=== PATIENT | male | born 1995 | race Caucasian/White ===

== ENCOUNTER 2021-07-11 10:05 | Outpatient (CLI) | payer OTHER, SELFPAY ==
[2021-07-11 18:54] LABS: Hematocrit 48.6 % (42.0-52.0); Hemoglobin 15.9 g/dL (14.0-18.0); Mean Corpuscular HGB Conc 32.7 g/dl (32-36); Mean Corpuscular Hemoglobin 29.9 pg (26-34); Mean Corpuscular Volume 91.4 fl (80-100); Mean Platelet Volume 11.3 fl (7.4-10.4); Platelet Count Result 299 k/mm3 (150-375); Red Blood Count 5.32 M/mm3 (4.6-6.20); Red Cell Distribution Width 13.1 % (11.5-14.5); White Blood Count 7.3 K/mm3 (4.5-10.0)
[2021-07-11 20:18] LABS: Alanine Aminotransferase 33 U/L (4-50); Albumin Level 4.8 g/dL (3.5-5.1); Alkaline Phosphatase 79 U/L (38-126); Anion Gap 9 mmol/L (8-16); Aspartate Amino Transferase 30 U/L (17-59); Bilirubin,Total 0.7 mg/dL (0.2-1.3); Blood Urea Nitrogen 10 mg/dL (9-20); Calcium 9.5 mg/dL (8.4-10.2); Carbon Dioxide 29 mmol/L (22-30); Chloride 101 mmol/L (98-107); Cholesterol 168 mg/dL (0-200); Estimated Glomerular Filt Rate > 60; Glucose 96 mg/dL (65-110); HDL Direct 73 mg/dL; Potassium 4.7 mmol/L (3.4-5.0); Sodium 139 mmol/L (137-145); Triglycerides 60 mg/dL (<150)
[2021-07-11 20:29] LABS: LDL Cholesterol Direct 78 mg/dL
== END 2021-07-11 10:06 | disposition home or self-care (01) ==
LOC: ANHBWCLAB 10:06
PROVIDERS: PCP Family Medicine; Visit Provider Family Medicine
DX: Z00.00 Encounter for general adult medical examination without abnormal findings (principal)
CPT/HCPCS: 36415; 80053; 80061; 85027

== ENCOUNTER 2021-08-31 15:09 | Outpatient (CLI) | payer OTHER, SELFPAY ==
--- NOTE | ~2021-08-31 | US_ITS ---
EXAMINATION: US scrotum doppler DATE: 08/31/2021 16:17 INDICATION: Left testicular lump. TECHNIQUE: Grayscale and Doppler ultrasound images of the testes were obtained. COMPARISON: None. FINDINGS: The right testis measures 4.3 x 3.2 x 2.0 cm. The left testis measures 3.8 x 2.8 x 1.8 cm. There is normal vascular flow to both testes. The right epididymis demonstrates a 5 mm cyst. The left epididymis demonstrates a 4 mm cyst. There is a 1.1 x 0.7 x 0.8 cm hypoechoic mass in the left epidi dymis. There is no varicocele. There is a left-sided hydrocele. IMPRESSION: 1. 1.1 cm mass in left epididymis, most likely a spermatocele. The differential diagnosis also inclu isaiah adenomatoid tumor and fibrous pseudotumor. Reviewed, dictated and finalized at location A. IMPRESSION: 1. 1.1 cm mass in left epididymis, most likely a spermatocele. The differentia l diagnosis also includes adenomatoid tumor and fibrous pseudotumor.
== END 2021-08-31 15:10 | disposition home or self-care (01) ==
PROVIDERS: PCP Family Medicine; Visit Provider Family Medicine
DX: N50.89 Other specified disorders of the male genital organs (principal)
CPT/HCPCS: 76870; 93976

== ENCOUNTER 2022-07-17 07:54 | Outpatient (CLI) | payer OTHER, SELFPAY ==
[2022-07-17 19:43] LABS: Alanine Aminotransferase 62 U/L (6-50); Albumin Level 4.8 g/dL (3.5-5.1); Alkaline Phosphatase 93 U/L (38-126); Anion Gap 7 mmol/L (8-16); Aspartate Amino Transferase 103 U/L (17-59); Bilirubin,Total 0.8 mg/dL (0.2-1.3); Blood Urea Nitrogen 12 mg/dL (9-20); Calcium 9.4 mg/dL (8.4-10.2); Carbon Dioxide 32 mmol/L (22-30); Chloride 102 mmol/L (98-107); Cholesterol 183 mg/dL (0-200); Estimated Glomerular Filt Rate > 60; Glucose 89 mg/dL (65-110); HDL Direct 73 mg/dL; Potassium 4.1 mmol/L (3.4-5.0); Sodium 141 mmol/L (137-145); Triglycerides 80 mg/dL (<150)
[2022-07-17 19:54] LABS: LDL Cholesterol Direct 69 mg/dL
[2022-07-17 19:57] LABS: Hematocrit 46.4 % (42.0-52.0); Hemoglobin 15.4 g/dL (14.0-18.0); Mean Corpuscular HGB Conc 33.2 g/dl (32-36); Mean Corpuscular Hemoglobin 29.1 pg (26-34); Mean Corpuscular Volume 87.7 fl (80-100); Mean Platelet Volume 11.1 fl (7.4-10.4); Platelet Count Result 271 k/mm3 (150-375); Red Blood Count 5.29 M/mm3 (4.6-6.20); Red Cell Distribution Width 12.8 % (11.5-14.5); White Blood Count 6.4 K/mm3 (4.5-10.0)
== END 2022-07-17 07:55 | disposition home or self-care (01) ==
LOC: ANHBWCLAB 07:56
PROVIDERS: PCP Family Medicine; Visit Provider Family Medicine
DX: Z00.00 Encounter for general adult medical examination without abnormal findings (principal); J98.01 Acute bronchospasm; N50.89 Other specified disorders of the male genital organs; N50.3 Cyst of epididymis; E10.11 Type 1 diabetes mellitus with ketoacidosis with coma
CPT/HCPCS: 36415; 80053; 80061; 85027

== ENCOUNTER 2022-08-15 10:58 | Outpatient (CLI) | payer OTHER, SELFPAY ==
[2022-08-15 19:44] LABS: Alanine Aminotransferase 46 U/L (6-50); Albumin Level 4.7 g/dL (3.5-5.1); Alkaline Phosphatase 69 U/L (38-126); Aspartate Amino Transferase 69 U/L (17-59); Bilirubin,Total 0.6 mg/dL (0.2-1.3)
[2022-08-15 20:47] LABS: Hepatitis B Surface Antigen Negative (Negative)
[2022-08-15 20:53] LABS: HAV RESULT Negative (Negative); Hepatitis B Core IgM Result Negative (Negative)
[2022-08-15 21:04] LABS: Hepatitis C Virus Antibody Negative (Negative)
== END 2022-08-15 10:59 | disposition home or self-care (01) ==
LOC: ANHBWCLAB 11:00
PROVIDERS: PCP Family Medicine; Visit Provider Family Medicine
DX: R74.8 Abnormal levels of other serum enzymes (principal)
CPT/HCPCS: 36415; 80074; 80076

== ENCOUNTER 2022-10-24 11:51 | Outpatient (CLI) | payer OTHER, SELFPAY ==
[2022-10-24 19:58] LABS: Alanine Aminotransferase 49 U/L (6-50); Albumin Level 4.6 g/dL (3.5-5.1); Alkaline Phosphatase 67 U/L (38-126); Aspartate Amino Transferase 87 U/L (17-59); Bilirubin,Total 0.7 mg/dL (0.2-1.3)
== END 2022-10-24 11:52 | disposition home or self-care (01) ==
LOC: ANHBWCLAB 11:52
PROVIDERS: PCP Family Medicine; Visit Provider Family Medicine
DX: R74.8 Abnormal levels of other serum enzymes (principal)
CPT/HCPCS: 36415; 80076

== ENCOUNTER → 2022-10-30 09:07 | Outpatient (CLI) | payer OTHER, SELFPAY ==
--- NOTE | ~2022-10-30 | US_ITS ---
Limited Abdominal Sonogram: Real-time sonographic imaging of the right upper quadrant was performed. Clinical History: Abnormal serum enzymes Findings: The liver appears normal with no evidence of mass lesion or bile duct dilatation. Main por cee vein demonstrates normal direction of flow. The gallbladder is well distended, and appears normal with no evidence of gallstone or wall thickening. The common bile duct measures 5 mm. The visualize d pancreas, aorta, and IVC are unremarkable. Impression: No significant abnormality seen. Reviewed, dictated and finalized at location . Impression: No significant abnormality seen.
== END ==
PROVIDERS: PCP Family Medicine; Visit Provider Family Medicine
DX: R74.8 Abnormal levels of other serum enzymes (principal)
CPT/HCPCS: 76705

== ENCOUNTER 2023-07-30 09:43 | Outpatient (CLI) | payer OTHER, SELFPAY ==
[2023-07-30 19:00] LABS: Hematocrit 46.8 % (42.0-52.0); Hemoglobin 15.2 g/dL (14.0-18.0); Mean Corpuscular HGB Conc 32.5 g/dl (32-36); Mean Corpuscular Hemoglobin 29.1 pg (26-34); Mean Corpuscular Volume 89.5 fl (80-100); Mean Platelet Volume 11.6 fl (7.4-10.4); Platelet Count Result 291 k/mm3 (150-375); Red Blood Count 5.23 M/mm3 (4.6-6.20); Red Cell Distribution Width 12.8 % (11.5-14.5); White Blood Count 5.7 K/mm3 (4.5-10.0)
[2023-07-30 21:26] LABS: Alanine Aminotransferase 52 U/L (6-50); Albumin Level 4.7 g/dL (3.5-5.1); Alkaline Phosphatase 68 U/L (38-126); Anion Gap 4 mmol/L (4-12); Aspartate Amino Transferase 63 U/L (17-59); Bilirubin,Total 0.8 mg/dL (0.2-1.3); Blood Urea Nitrogen 14 mg/dL (9-20); Calcium 9.9 mg/dL (8.4-10.2); Carbon Dioxide 30 mmol/L (22-30); Chloride 103 mmol/L (98-107); Cholesterol 184 mg/dL (0-200); Estimated Glomerular Filt Rate > 60; Glucose 89 mg/dL (65-110); HDL Direct 75 mg/dL; Potassium 4.5 mmol/L (3.4-5.0); Sodium 137 mmol/L (137-145); Triglycerides 60 mg/dL (<150)
[2023-07-30 21:37] LABS: LDL Cholesterol Direct 91 mg/dL
== END 2023-07-30 09:44 | disposition home or self-care (01) ==
PROVIDERS: PCP Nurse Practitioner Adult Health; Visit Provider Nurse Practitioner Adult Health
DX: Z13.9 Encounter for screening, unspecified (principal)
CPT/HCPCS: 36415; 80053; 80061; 85027

== ENCOUNTER 2024-04-07 13:06 | Outpatient (CLI) | payer OTHER, SELFPAY ==
--- NOTE | 2024-04-07 13:13 | ECG_ITS ---
Test Date: 2024-04-07 13:29:29 Measurements Intervals [place] Rate: 81 P: 137 ND: 125 QRS: 146 QRSD: 105 T: 150 QT: 348 QTc: 406 Interpretive Statements SINUS RHYTHM LEFT POSTERIOR FASCICULAR BLOCK [QRS AXIS > 109, INFERIOR Q] MINIMAL ST DEPRESSION [0.025+ mV ST DEPRESSION] No previous ECG available for comparison Electronically Signed On 04-07-2024 19:01:34 LEATHER DRIER by Jeffry Austin
== END 2024-04-07 13:07 | disposition home or self-care (01) ==
PROVIDERS: PCP Nurse Practitioner Adult Health; Visit Provider Nurse Practitioner Adult Health
DX: I44.5 Left posterior fascicular block (principal); F41.0 Panic disorder [episodic paroxysmal anxiety]
CPT/HCPCS: 93005

== ENCOUNTER 2024-06-27 11:42 | Emergency (ER) | payer OTHER, SELFPAY ==
[2024-06-27 11:48] VITALS: BP 120/76; PULSE 105; RESP 20; TEMP 36.9; O2SAT 100
--- NOTE | 2024-06-27 11:59 | ED.CHESTPAIN ---
HPI - Chest Pain General Chief Complaint: Anxiety Stated Complaint: Chest Pain/Dizziness Time Seen by Provider: 06/27/24 12:14 Mode of arrival: ambulatory Limitations: no limitations History of Present Illness HPI narrative: 28-year-old male presents with concern for fast heartbeat this morning with chest discomfort. Reports he feels like he had a panic attack. Reports symptoms lasted for about 15 minutes and now he feels very tired and ?empty?. He denies any current pain. Denies shortness of breath. He denies current fast heartbeat. He reports he has been having these episodes more frequently and has an several times a week. Reports he has not talked with primary care doctor about it yet. Reports he saw a financial aid manager at the beginning of the year and wore a Holter monitor that was normal. MD complaint: other (panic attack) Related Data Home Medications ?Medication ?Instructions ?Recorded ?Confirmed ?Last Taken ?Type No Home Medications 06/27/24 06/27/24 Unknown History Allergies Allergy/AdvReac Type Severity Reaction Status Date / Time No Known Allergies Allergy Verified 06/27/24 12:15 Review of Systems Review of Systems: CONSTITUTIONAL: Denies malaise. Reports fatigue CARDIOVASCULAR: Denies chest pain, palpitations, or edema. RESPIRATORY: Denies cough or dyspnea. NEUROLOGIC: Denies numbness, weakness, or headache. PSYCHIATRIC: Reports anxiety All systems reviewed & are unremarkable except as noted in HPI and below PMFSH Family History Family History Grandparent Family history of thyroid disease Hypertension Family history of malignant neoplasm of breast Sibling Family history of scoliosis Social History Social History Smoking status: Never smoker Alcohol intake: current Lack of Transportation: No Lack of Food: Never True Current Housing: I Have Housing Concerned About Future Housing: No Difficulty Paying Gas/Electric Bills: No Difficulty Paying for Meds: No Currently Unemployed: No Education: Associate Degree Difficulty w/ Childcare or Family Care: No Gender identity (if verbalized by the patient): Male Comments At time of signature, agree with nursing past medical, surgical, social and family history. There is no relevant family history pertinent to the presenting complaint Exam Narrative: GENERAL: Well-appearing, well-nourished, and in no acute distress. HEAD: Normocephalic, atraumatic. EYES: PERRLA, sclera clear, and EOMI. No nystagmus. ENT: Nares clear, no rhinorrhea or epistaxis. Mucous membranes moist. NECK: Supple. No lymphadenopathy. No jugular venous distension, thyromegaly, or carotid bruits. Carotids were easily palpable bilaterally. CHEST: No respiratory distress. Clear to auscultation. No bony deformities, no asymmetry. Speaks in full sentences. HEART: Regular rate and rhythm. No murmur heard. Normal peripheral pulses. EXTREMITIES: Normal range of motion. No edema. Normal strength and sensation. SKIN: Warm, dry, no visible rash. NEURO: Alert and oriented x3. No focal deficits. Cranial nerves II through XII grossly intact PSYCH: Normal mood and affect Course Course Emergency Course: Patient reports he will call his primary care doctor to make an appointment to develop a plan hands. He understands has chest pain he needs to go to the emergency room. Patient is aware of diagnosis, understands and agrees to treatment plan. Anticipatory guidance given. Patient agrees to follow-up as directed and is aware of reasons to seek care at the emergency department. Portions of this record may have been created with voice recognition software Level of Care: Express Care Visit Vital Signs Vital signs: Vital Signs Temperature 98.5 F 06/27/24 11:48 Pulse Rate 105 H 06/27/24 11:48 Respiratory Rate 20 06/27/24 11:48 Blood Pressure 120/76 06/27/24 11:48 Pulse Oximetry 100 06/27/24 11:48 Oxygen Delivery Room Air 06/27/24 11:48 Temperature 98.5 F 06/27/24 11:48 Pulse Rate 105 H 06/27/24 11:48 Respiratory Rate 20 06/27/24 11:48 Blood Pressure 120/76 06/27/24 11:48 Pulse Oximetry 100 06/27/24 11:48 Oxygen Delivery Room Air 06/27/24 11:48 Reviewed. Critical Care Time Critical Care Time Critical Care Time: No Discharge Plan Discharge Clinical Impression: Anxiety Patient Disposition: Home, Self-Care Condition: Stable Instructions: Anxiety (ED) Additional Instructions: 1) Please follow-up with your primary care doctor in the next 1-2 days. 2) If you have any worsening of symptoms or any other urgent concerns please go to the ER. 3) Please take medications as prescribed and continue taking your home medications as usual. 4) Please read and follow information included in discharge instructions. Patient Language: Botswanan Prescriptions: New hydroxyzine HCl 25 mg tablet 25 mg PO TID PRN (Reason: anxiety) Qty: 20 0RF No Action No Home Medications Follow-up/Referrals: Latasha Winkler APRN [Primary Care Provider] - Time of Disposition: 12:24
== END 2024-06-27 12:25 | disposition home or self-care (01) ==
PROVIDERS: Emergency Provider Nurse Practitioner; PCP Nurse Practitioner Adult Health
DX: F41.9 Anxiety disorder, unspecified (principal)
CPT/HCPCS: 99213; G0463

== ENCOUNTER 2024-07-29 09:52 | Outpatient (CLI) | payer OTHER, SELFPAY ==
--- OUTSIDE RECORDS SUMMARY | 2024-07-29 10:31 | XMS_ITS | Clinical Summary ---
Author Organization [facility] [address] Address [address] [place] [address] Phone Care Team Providers Care Group Home Paraprofessional Name Role Phone Latasha Winkler NP Primary Care Provider [phone] Allergies No known active allergies Medications mometasone 100 mcg/actuation HFA aerosol inhalerIndication s:Mild persistent asthma without complication Inhale 200 mcg 2 (two) times a day 1 Inhaler 1 Active sodium chloride (OCEAN) 0.65 % nasal spray Administer 1 spray into each nostril as needed Active albuterol HFA (PROVENTIL HFA,VENTOLIN HFA,PROAIR HFA) 90 mcg/actuation inhaler Inhale 1-2 puffs every 4 (four) hours as needed for wheezing 1 each 1 4 Active guaiFENesin ER (MUCINEX) 600 mg 12 hr tablet Take 2 tablets (1,200 mg total) by mouth 2 (two) times a day 120 tablet 11 4 03/29/20 25 Active methylPREDNISolon e (MEDROL DOSEPACK) 4 mg Dosepack Take as directed on package. 21 tablet 4 Active Active Problems Problem Noted Date Diagnosed Date Mild persistent asthma without complication 06/2019 Assessment & Plan (07/25/2020 2:22 PM CDT): He was in urgent care last fall with a cough and wheezing. They put him on a rescue inhaler which helps. He carries it around with him. It seems like the winter is hard on his lungs. He probably has mild asthma. We gave him a sample of steroid inhaler to use during symptomatic periods. He should rinse his mouth out thoroughly after use. Follow-up early as needed for this problem. Chronic rhinitis 05/29/2018 Assessment & Plan (07/19/2020 12:26 PM CDT): He has allergies which have flared over the past several days. He has pain and pressure in the bilateral maxillary sinus area. He is getting yellow drainage out of his nose. No fever. He plans to try qsta-uxn-cwymbbl remedies including nasal saline. If he is still symptomatic after another week, or if he develops a fever, he will call for an antibiotic prescription. Assessment & Plan (06/02/2019 3:29 PM BARREL BUNG REMOVER AND DUMPER): He has chronically congested nasal passages. It has been going on for at least a year. It does not seem to be seasonal. It does not necessarily sound like allergies, but this is a possibility. We will put him on some Astelin nose spray to see if this helps. Consider other evaluation or intervention as needed. Overweight (BMI 25.0-29.9) 05/29/2017 Assessment & Plan (07/19/2020 12:24 PM CDT): He is weight is stable. We encouraged attention to his diet and staying active. Assessment & Plan (06/13/2019 12:54 PM BARREL BUNG REMOVER AND DUMPER): He has put on quite a bit of weight since his last visit. He says his weight fluctuates between 150 and 200 lb. We talked about eating a better diet and getting some regular aerobic exercise. He has not been going to the gym, but he does golf a fair amount. He will start to work on this a bit. Resolved Problems Problem Noted Date Diagnosed Date Resolved Date Wheezing 02/27/2020 07/18/2020 Overview (02/29/2020): Delayed effects of Covid-19 infection in December 2019. Assessment & Plan (02/29/2020 12:32 PM BARREL BUNG REMOVER AND DUMPER): Pt states he feels worse now than he did when he was diagnosed with COVID last month. Pt states he is scheduled with [facility] 03/02/20. Pt asking what he can do to treat the symptoms. Informed pt he can use OTC Mucinex, Robitussin, or Delsym to help with cough/congestion and OTC Tylenol for fever/pain. Pt states he feels the wheezing may be coming from his throat, not his chest. Albuterol inhaler sent as therapeutic trial. Pt advised that if SOB because worse, he needs to go to ER for evaluation. Skin lesion 11/05/2019 07/19/2020 Overview (07/19/2020): Shrank down and fell off, never went to the surgeon. Assessment & Plan (11/05/2019 4:08 PM CDT): Skin lesion located in the upper pubic region. Dr. Woods recommends excision of this if it is bothering him. Pt would like to have it excised. We will refer him to general surgery or urology for removal of this. We have asked him to call us in the interim if he develops any pain, increased redness or swelling, fever. Rash 10/01/2019 07/19/2020 Overview (07/19/2020): Details lacking. Sensation of plugged ear on left side 08/23/2018 06/02/2019 Overview (06/02/2019): Likely due to wax, resolved. Assessment & Plan (08/28/2018 3:19 PM CDT): He has had a plugged sensation in the left ear for the past five or six days. He says it feels like he is wearing an ear plug. He denies pain or fever. He has tried [id number]-[id number] earwax softeners with no improvement. Exam shows impaction of both ear canals with wax. Irrigation ordered. Oral cyst 04/21/2018 06/02/2019 Assessment & Plan (06/02/2019 3:16 PM BARREL BUNG REMOVER AND DUMPER): Kind of just disappeared per patient. Assessment & Plan (06/11/2018 6:33 AM BARREL BUNG REMOVER AND DUMPER): About five weeks ago around [place], he developed a mucosal swelling on the inner aspect of his left lower lip. It is not tender. It has fluctuated in size. He tried to squeeze it and drain it and did get a little bit of fluid out of it, but then it swell up and got worse. There has never been any pain or fever. He is not aware of any other oral lesions. On exam, he has a small whitish superficial cystic appearing structure on the inner aspect of the left lower lip. This is most likely a mucoid cyst or a blocked minor salivary gland. We will have him see ENT for definitive diagnosis and treatment. 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 POTS (postural orthostatic t achycardia syndrome) 07/13/2015 08/28/2018 Overview (08/28/2018): Orthostatic hypotension Sinus tachycardia 06/27/2015 05/29/2018 Overview (08/02/2016): Sinus tachycardia Palpitations 03/30/2015 05/29/2018 Overview (08/02/2016): Palpitations Mass of skin 06/12/2012 05/29/2018 Overview (05/29/2018): Lipoma, resected. Arthralgia of elbow 08/01/2010 05/29/19 19 Immunizations Immunization Administration Dates Next Due DTaP 01/14/2000,02/17/1996 DTaP / HiB 05/19/1995,03/19/1995,01/06/1995 Hep B, Adolescent or Pediatric 05/19/1995,1994 Hib (PRP-T) 02/17/1996 IPV 01/14/2000,05/19/1995,03/19/1995 ,01/06/1995 MMR 01/14/2000,11/18/1995 Varicella 11/18/1995 Surgical History Surgery Date Site/Laterality Comments LIPOMA RESECTION 04/28/2012 - 04/27/2013 Right upper back/posterior neck area. Medical History Medical History Date Comments Postural orthostatic tachyca rdia syndrome 07/13/2015 Orthostatic hypotension, res olved. Sinoatrial node tachycardia 08/11/2015 Sino atrial node tachycardia Sinus tachycardia 06/27/2015 Sinus tachycar bia Palpitations 03/30/2015 Palpitations Arthralgia of elbow 08/01/2010 Mass of skin 06/12/2012 Lipoma, resected . Social phobia 07/18/2015 Social anxiety d isorder during work up for POTS, now resolved. 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 Oral cyst 04/21/2018 Chicken pox 2005 Only had one dos e of the vaccine, then got chicken pox. Covid-19 12/2019 Details lacking. Wheezing 02/27/2020 Delayed effects of Covid-19 infection in December 2019. Skin lesion 11/05/2019 Shrank down and fell off, never went to the surgeon. Rash 10/01/2019 Details lacking. Family History Medical History Relation Name Comments Sravan's thyroiditis Maternal Grandmother Relation Name Status Comments Maternal Grandmother Social History Tobacco Use Types Packs/Day Years Used Date Smoking Tobacco: Never Smokeless Tobacco: Never Tobacco Cessation:Counseling Given: Yes Alcohol Use Standard Drinks/Week Comments No 0 (1 standard drink = 0.6 oz pur e alcohol) PHQ-2 Answer Date Recorded PHQ-2 Total Score (If total score is 3 or more points, staff should administer the PHQ-9) 0 07/19/2020 Sex and Gender Information Value Date Recorded Sex Assigned at Not on file Legal Sex Male 2:51 PM BARREL BUNG REMOVER AND DUMPER Gender Identity Not on file Sexual Orientation Not on file Obstetrics History Last Filed Vital Signs Vital Sign Reading Time Taken Comments Blood Pressure 122/70 04/07/2024 11:00 AM BARREL BUNG REMOVER AND DUMPER Pulse 88 04/07/2024 11:00 AM BARREL BUNG REMOVER AND DUMPER Temperature 36.4 C (97.6 F) 04/07/2024 11:00 AM BARREL BUNG REMOVER AND DUMPER Respiratory Rate 19 04/07/2024 11:00 AM BARREL BUNG REMOVER AND DUMPER Oxygen Saturation 98% 04/07/2024 11:00 AM BARREL BUNG REMOVER AND DUMPER Inhaled Oxygen Concentration - - Weight 80.7 kg (178 lb) 04/07/2024 11:00 AM BARREL BUNG REMOVER AND DUMPER Height 177.8 cm (5' 10 ) 04/07/2024 11:00 AM BARREL BUNG REMOVER AND DUMPER Body Mass Index 25.54 04/07/2024 11:00 AM BARREL BUNG REMOVER AND DUMPER Plan of Treatment Health Maintenance Due Date Last Done Comments Hepatitis C Screening 1994 DTaP/Tdap/Td Vaccine (6 - Tdap) 2005 01/14/2000, 02/17/1996, 05/19/1995, Additional history exists Pneumococcal vaccine <65 (1 of 2 - PCV) 2013 Depression Screening 07/19/2021 07/19/2020, 06/02/19 Regular Well Visit/Exam 18-64 07/19/2021 07/19/2020, 06/02/2019 Influenza Vaccine (#1) 2023 Hepatitis B Screening Completed 05/19/1995, 995 HPV Vaccines Aged Out No longer eligi ble based on patient's age to complete this topic Insurance [facility] CHOICE PLUS [place] [id number] Care Teams Group Home Paraprofessional Relationship Specialty Start Date End Date Latasha Winkler NP [address] [place] [address] PCP - General Nurse Practitioner 03/29/24
--- OUTSIDE RECORDS SUMMARY | 2024-07-29 10:31 | XMS_ITS | Clinical Summary ---
Author Organization [facility] Address [address] [place] [address] Phone Care Team Providers Care Boat Camp Operator Name Role Phone Chuck Pozo MD Primary Care Provider [phone] Allergies No known active allergies Medications METOPROLOL TARTRATE PO Take by mouth. Act mirta PARoxetine HCl (PAXIL PO) Take by mouth. Acti ve albuterol (ProAir HFA) 108 (90 Base) MCG/ACT Aerosol SolutionIndicat ions:Bronchitis take 2 Puffs by inhalation every 4 hours as needed for Wheezing or Cough. 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 Sexually Active Control Partners Comments Yes Sex and Gender Information Value Date Recorded Sex Assigned at Not on file Legal Sex Male 7:49 PM CDT Gender Identity Not on file Sexual Orientation Not on file Last Filed Vital Signs Vital Sign Reading Time Taken Comments Blood Pressure 100/68 02/29/2020 1:16 PM IT TRAINING SPECIALIST Pulse 89 02/29/2020 1:16 PM IT TRAINING SPECIALIST Temperature 36.8 C (98.3 F) 02/29/2020 1:16 PM IT TRAINING SPECIALIST Respiratory Rate 20 02/29/2020 1:16 PM IT TRAINING SPECIALIST Oxygen Saturation 98% 02/29/2020 1:16 PM IT TRAINING SPECIALIST Inhaled Oxygen Concentration - - Weight - - Height - - Body Mass Index - - Plan of Treatment Health Maintenance Due Date Last Done Comments Hepatitis C Virus (HCV) Screening 1994 TdaP Immunization 1994 Hepatitis B Immunization (1 of 3 - 19+ 3-dose series) 2013 Influenza Immunization (#1) 2023 SARS-COV-2 Immunization (2023- season) 2023 Respiratory Syncytial Virus (RSV) Immunization (Adult) (1 - 1-dose 75+ series) 2069 Meningococcal Immunization (ACWY) Aged Out No longer eligible based on patient's age to complete this topic Pneumococcal Immunization Combined Aged Out No longer eligible based on patient's age to complete this topic Rotavirus Immunization Aged Out No lo nger eligible based on patient's age to complete this topic Care Teams Boat Camp Operator Relationship Specialty Start Date End Date Chuck Pozo MD [address], [address] [place] [address] PCP - General Infectious Disease 07/20/15
--- OUTSIDE RECORDS SUMMARY | 2024-07-29 10:31 | XMS_ITS | Clinical Summary ---
Author Organization [facility] Address [address] [place] [address] Care Team Providers Care Safety Leader Name Role Phone Chuck Pozo MD Primary Care Provider [phone] Source Comments [facility],non-owned Affiliates and Associated Physician Practices is amultiple site organization consisting of ambulatory clinics and hospital sitesin [place], [place], [place] and [place]. This disclosure is being madepursuant to the Care Everywhere program and may not contain all information available regarding this patient. Last updated 18.[facility] Allergies No known active allergies Medications * Be aware that medications may not be up to date on this document. Alwaysverify current medications with the patient. Medication Sig Dispensed Refills Start Date End Date Status fludrocortisone (FLORINEF) 0.1 MG tablet Take 1 Tab by mouth once daily 30 Tab 5 03/14/2016 Active Additional Information Patient not taking.Reported on 05/16/2016 sertraline (ZOLOFT) 100 MG tablet Take 1 Tab by mouth once daily Start with 1/2 pill x 2 week, increase if not 50% less anxious 30 Tab 5 05/16/2016 Active omeprazole (PRILOSEC) 20 MG capsuleIndications:E pigastric pain Take 1 Cap by mouth daily before breakfast 30 Cap 3 08/01/2016 Active Active Problems Problem Noted Date Diagnosed Date Tachycardia 01/02/2016 POTS (postural orthostatic tachycardia syndrome) 12/07/2015 Orthostatic hypotension Family History Relation Name Status Comments Brother Alive x2 Scoliosis x1 Father Alive Healthy Mother Alive Healthy Sister Alive x1 Healthy Social History Tobacco Use Types Packs/Day Years Used Date Smoking Tobacco: Never Smokeless Tobacco: Former Alcohol Use Standard Drinks/Week Comments Yes 2 (1 standard drink = 0.6 oz pur e alcohol) Socially Sex and Gender Information Value Date Recorded Sex Assigned at Not on file Gender Identity Not on file Sexual Orientation Not on file Last Filed Vital Signs Vital Sign Reading Time Taken Comments Blood Pressure 124/73 07/04/2016 1:26 PM TOWEL ROLLING MACHINE OPERATOR Pulse 61 05/16/2016 9:36 AM TOWEL ROLLING MACHINE OPERATOR Temperature 36.5 C (97.7 F) 01/12/2016 12:37 PM CDT Respiratory Rate 18 01/12/2016 12:3 7 PM CDT Oxygen Saturation 98% 03/14/2016 1:50 PM TOWEL ROLLING MACHINE OPERATOR Inhaled Oxygen Concentration - - Weight 62.5 kg (137 lb 12.8 oz) 07/04/2016 1:26 PM TOWEL ROLLING MACHINE OPERATOR Height 177.8 cm (5' 10 ) 07/04/2016 1:26 PM TOWEL ROLLING MACHINE OPERATOR Body Mass Index 19.77 07/04/2016 1:26 PM TOWEL ROLLING MACHINE OPERATOR Plan of Treatment Health Maintenance Due Date Last Done Comments HIV SCREENING 2009 HEPATITIS C SCREENING 11/09/2012 DTAP/TDAP/TD VACCINES (1 - Tdap) 2013 HEPATITIS B VACCINE (1 of 3 - 19+ 3-dose series) 2013 COVID-19 VACCINE (1 - 2023-2 5 season) 2023 INFLUENZA VACCINE (#1) 2023 DEPRESSION SCREENING 04/28/2024 ZOSTER VACCINE (1 of 2) 2044 HIB VACCINE Aged Out No longer eligi ble based on patient's age to complete this topic HPV VACCINE Aged Out No longer eligi ble based on patient's age to complete this topic MENINGOCOCCAL (Group B) VACC INE SHARED DECISION-MAKING Aged Out No longer eligibl e based on patient's age to complete this topic MENINGOCOCCAL GROUPS A/C/Y/W VACCINE Aged Out No longer eligible b ased on patient's age to complete this topic PNEUMOCOCCAL VACCINE Aged Out No long er eligible based on patient's age to complete this topic Care Teams Safety Leader Relationship Specialty Start Date End Date Chuck Pozo MD [address] [place] [address] PCP - General Internal Medicine 08/14/15
--- OUTSIDE RECORDS SUMMARY | 2024-07-29 10:31 | XMS_ITS | Referral Summary ---
Author Organization [facility] [address] Address [address] [place] [address] Phone Care Team Providers Care Hog Sticker Name Role Phone Latasha Winkler NP Primary Care Provider Allergies No known active allergies Medications mometasone [...] nose. No fever. He plans to try [id number]-bzk-[id number] remedies including nasal saline. If he is still symptomatic after another week, or if he develops a fever, he will call for an antibiotic prescription. Assessment & Plan (06/02/2019 3:29 PM PUBLIC RELATIONS ASSOCIATE): He has chronically congested nasal passages. It [...] active. Assessment & Plan (06/13/2019 12:54 PM PUBLIC RELATIONS ASSOCIATE): He has put on quite a bit [...] 2019. Assessment & Plan (02/29/2020 12:32 PM PUBLIC RELATIONS ASSOCIATE): Pt states he feels worse now than he did when he was diagnosed with COVID last month. Pt states he is scheduled with [facility] 03/02/20. Pt asking what he [...] denies pain or fever. He has tried [id number]-dyv-[id number] earwax softeners with no improvement. Exam shows impaction of both ear canals with wax. Irrigation ordered. Oral cyst 04/21/2018 06/02/2019 Assessment & Plan (06/02/2019 3:16 PM PUBLIC RELATIONS ASSOCIATE): Kind of just disappeared per patient. Assessment & Plan (06/11/2018 6:33 AM PUBLIC RELATIONS ASSOCIATE): About five weeks ago around [place], he developed a mucosal swelling on the [...] IPV 01/14/2000,05/19/1995,03/19/1995 ,01/06/1995 MMR 01/14/2000,11/18/1995 Varicella 11/18/1995 Social History Tobacco Use Types Packs/Day Years [...] on file Legal Sex Male 2:51 PM PUBLIC RELATIONS ASSOCIATE Gender Identity Not on file Sexual Orientation Not on file Last Filed Vital Signs Vital Sign Reading Time Taken Comments Blood Pressure 122/70 04/07/2024 11:00 AM PUBLIC RELATIONS ASSOCIATE Pulse 88 04/07/2024 11:00 AM PUBLIC RELATIONS ASSOCIATE Temperature 36.4 C (97.6 F) 04/07/2024 11:00 AM PUBLIC RELATIONS ASSOCIATE Respiratory Rate 19 04/07/2024 11:00 AM PUBLIC RELATIONS ASSOCIATE Oxygen Saturation 98% 04/07/2024 11:00 AM PUBLIC RELATIONS ASSOCIATE Inhaled Oxygen Concentration - - Weight 80.7 kg (178 lb) 04/07/2024 11:00 AM PUBLIC RELATIONS ASSOCIATE Height 177.8 cm (5' 10 ) 04/07/2024 11:00 AM PUBLIC RELATIONS ASSOCIATE Body Mass Index 25.54 04/07/2024 11:00 AM PUBLIC RELATIONS ASSOCIATE Plan of Treatment Not on file Insurance [facility] [employer] [place] [employer] Address: [address] [address] [place] [address] Care Teams Hog Sticker Relationship Specialty Start Date End Date Latasha Winkler NP [address] [place] [id number] PCP - General Nurse Practitioner 03/29/24
[2024-07-29 19:13] LABS: Hematocrit 49.9 % (42.0-52.0); Hemoglobin 16.3 g/dL (14.0-18.0); Mean Corpuscular HGB Conc 32.7 g/dl (32-36); Mean Corpuscular Volume 88.6 fl (80-100); Mean Platelet Volume 11.2 fl (7.4-10.4); Platelet Count Result 289 k/mm3 (150-375); Red Blood Count 5.63 M/mm3 (4.6-6.20); Red Cell Distribution Width 12.9 % (11.5-14.5); White Blood Count 6.1 K/mm3 (4.5-10.0)
[2024-07-29 19:20] LABS: Alanine Aminotransferase 52 U/L (6-50); Alkaline Phosphatase 75 U/L (38-126); Anion Gap 10 mmol/L (4-12); Aspartate Amino Transferase 66 U/L (17-59); Bilirubin,Total 0.5 mg/dL (0.2-1.3); Blood Urea Nitrogen 15 mg/dL (9-20); Calcium 9.8 mg/dL (8.4-10.2); Carbon Dioxide 29 mmol/L (22-30); Chloride 100 mmol/L (98-107); Cholesterol 189 mg/dL (0-200); Estimated Glomerular Filt Rate > 60; Glucose 83 mg/dL (65-110); HDL Direct 95 mg/dL; Potassium 5.5 mmol/L (3.4-5.0); Sodium 139 mmol/L (137-145); Triglycerides 55 mg/dL (<150)
[2024-07-29 19:38] LABS: LDL Cholesterol Direct 79 mg/dL
== END 2024-07-29 09:53 | disposition home or self-care (01) ==
PROVIDERS: PCP Nurse Practitioner Adult Health; Visit Provider Nurse Practitioner Adult Health
DX: Z13.9 Encounter for screening, unspecified (principal)
CPT/HCPCS: 36415; 80053; 80061; 85027